=== PATIENT | male | born 1955 | race Caucasian/White ===

== ENCOUNTER 2017-11-16 11:50 | Day surgery (SDC) | payer OTHER ==
[2017-11-10 15:53] VITALS: BMI 35.4
[~2017-11-16 11:50] MED LIST: LACTATED RINGERS 1,000 ML IV SCH; SODIUM CHLORIDE 0.9% 1,000 ML IV SCH
[2017-11-16] MEDS ORDERED: SODIUM CHLORIDE 0.9% 1,000 ML IV ONE ×2 (12:04→18:00)
[2017-11-16 12:26] LABS: Basophils % (A) 0 %; Eosinophils # (A) 0.2 k/uL (0-0.7); Eosinophils % (A) 3 %; HCT 49.6 % (39.0-53.0); HGB 16.6 gm/dL (13.0-17.5); Lymphocytes % (A) 28 %; MCHC 33.5 g/dL (31.0-37.0); MCV 92.7 fL (80.0-100.0); Mean Platelet Volume 6.4; Monocytes # (A) 0.5 k/uL (0-1.0); Monocytes % (A) 7 %; Neutrophils # (A) 4.3 k/uL (1.3-7.7); Neutrophils % (A) 60 %; Platelet Count 326 k/uL (150-450); RBC 5.35 m/uL (4.30-5.90); WBC 7.2 k/uL (3.8-10.6)
[2017-11-16 12:29] LABS: Glucose,Whole Blood 106 mg/dL (75-99)
[2017-11-16 12:48] LABS: Anion Gap 9 mmol/L; Blood Urea Nitrogen 17 mg/dL (9-20); Calcium 9.1 mg/dL (8.4-10.2); Carbon Dioxide 25 mmol/L (22-30); Chloride 106 mmol/L (98-107); Glucose 110 mg/dL (74-99); Potassium 4.8 mmol/L (3.5-5.1); Sodium 140 mmol/L (137-145)
[2017-11-16] MEDS ORDERED: PROPOFOL 10 MG/ML 20 ML VIAL IV ONE (14:38)
[2017-11-16] MEDS ORDERED: LIDOCAINE 1% INJ 10MG/ML (20 ML MDV) ONE ×2 (14:38→15:08)
[2017-11-16] MEDS ORDERED: PROTAMINE SULFATE 10 MG/ML 5 ML VIAL IV ONE (14:38)
[2017-11-16] MEDS ORDERED: MIDAZOLAM 2 MG/2 ML VIAL ONE (14:38)
[2017-11-16] MEDS ORDERED: PHENYLEPHRINE-0.9% NACL SYG 1 MG/10 ML SYRINGE ONE (14:38)
[2017-11-16] MEDS ORDERED: SUCCINYLCHOLINE CHLORIDE 100 MG/5 ML SYR IV ONE (14:38)
[2017-11-16] MEDS ORDERED: HEPARIN SODIUM,PORCINE 10,000 UNIT/ML 1 ML VIAL ONE (14:38)
[2017-11-16] MEDS ORDERED: fentaNYL (PF) 50 MCG/ML 2 ML AMP ONE (14:38)
[2017-11-16] MEDS ORDERED: LIDOCAINE 1% INJ 10MG/ML (20 ML MDV) SQ ONE (15:10)
[2017-11-16] MEDS ORDERED: HEPARIN SOD,PORK IN 0.45% NACL 25,000 UNIT in 0.45% NACL 1 500ML.BAG IV ONE (15:30)
[2017-11-16] MEDS ORDERED: IOPAMIDOL-370 100ML BTL INJ ONE (18:08)
[2017-11-16] MEDS ORDERED: ACETAMINOPHEN TAB 325 MG TAB PO PRN (18:24)
[2017-11-16] MEDS ORDERED: HYDROcodone/APAP 5-325MG 1 EACH TAB PO PRN (18:24)
[2017-11-16] MEDS ORDERED: ACETAMINOPHEN IV (For NPO) 1,000 MG in EMPTY BAG 1 BAG IVPB ONE (18:24)
--- NOTE | 2017-11-16 18:38 | P.PCN ---
Preoperative Diagnosis: Diagnosis Atrial fibrillation, symptomatic, recent onset persistent Failed prior therapies including cardioversion Procedures performed (PVI - CRYO Ablation) Invasive hemodynamic monitoring while general anesthesia, right femoral arterial line for monitoring and sampling Comprehensive diagnostic EP study with attempted arrhythmia induction CS pacing and recording Catheter the mapping of the tachycardia (NOT 3D mapping) Intracardiac echocardiography Pulmonary vein isolation with transseptal and comprehensive EPS, [id number] Procedure details Patient was brought to the EP lab in a fasting state. Written informed consent was obtained prior to the procedure. Procedure performed under general anesthesia After initial muscle relaxant use, muscle relaxants were not given thereafter in order to assess phrenic nerve during procedure Patient prepped and draped as per protocol Full cryo-set up with standard preparation of the cryoablation tools done Femoral Venous access obtained on the right and left groins Sheaths placed Diagnostic catheters for the high right atrium, phrenic nerve stimulation and pacing, His bundle, RV and coronary sinus placed Intracardiac echo catheter placed Long sheath placed in the right atrium Left and right transseptal catheterization performed under intracardiac echo guidance Intravenous heparin with aCT above 300 Later, catheter positioning and balloon positioning under intracardiac echo Electrical cardioversion Baseline measurements Patient in atrial fibrillation of the start of the study, somewhat organized atrial fibrillation cycle length shorter than 200 ms but variable and Doing sinus rhythm cycle length 1101, MS 133, QRS 91 and QT interval 405 ms AH 103 ms, HV 46 ms Comprehensive diagnostic EP study with drug infusion Atrial recording/ pacing performed from the high right atrium and the coronary sinus RV pacing Transseptal catheterization performed RA pressure 13/8/11 LA pressure 20/6/14 Transseptal catheterization performed with standard sheath. The cryoablation sheath was then placed with an over the wire exchange without any acute complications. Very rotated heart, [place] needle pointing at 6:00 for transseptal puncture All 4 pulmonary veins were isolated in the following sequence: Left superior followed by left inferior followed by right superior followed by right inferior The cryo-ablation balloon was placed at the os of each vein 1.5 mL of IV dye was injected to confirm an occluded vein Goal during cryoablation was to achieve complete occlusion of the pulmonary vein , achieve -30C at 30 seconds and achieve -40C at 60 seconds and a time to affect of less than 60-90 seconds, . If not the balloon was repositioned to obtain this result After completion of Cryoblation with durations from 180-240 seconds, entrance block was confirmed with the Attain circular catheter in a roving fashion around the antrum of the pulmonary veins Phrenic nerve pacing was performed from the SVC, right innominate vein area and diaphragm voltage was monitored. Diaphragmatic contractions were also monitored manually for strength of contraction. Parameter goals for each cryo freeze -30C by 30 seconds -40C by 60 seconds Mediated between minus 40-55 Thaw time greater than 10 seconds Balloon visualized by intracardiac echo to ensure that the proximal one third was within the left atrium/antrum The esophagus was intubated. Esophageal Temperature monitoring with a CIRCA catheter formed. Esophageal deflection for hypothermia of the esophagus below 32C Left superior pulmonary vein Difficult but successful occlusion of the vein 120, followed by 180, followed by 120 seconds lesions Complete isolation on the second attempt in less than 60 seconds The first cryoablation was prematurely terminated because pulmonary veins could not be eliminated in 90 seconds Left inferior pulmonary vein 2 lesions, 180 followed by 120 seconds, complete isolation Right superior pulmonary vein, during phrenic nerve pacing 2 lesions, 150 seconds and 137 seconds Very Mild phrenic nerve paresis noted hence premature termination for the second cryo Low temperatures below -60 noted for the first cryo lesion hence premature termination Time interval of greater than 5 minutes given prior to starting cryoablation of the right inferior pulmonary vein Right inferior pulmonary vein, during phrenic nerve pacing After documenting adequate strength of diaphragmatic stimulation, cryoablation performed First cryo lesion 83 seconds. Premature termination on account of esophageal cooling. Line esophageal deflection performed Next cryo lesion 176 seconds, prematurely terminated by 4 seconds on account of very mild phrenic nerve paresis which recovered completely At the end of the procedure the Achieve catheter was once again used to check for entrance block Phrenic nerve stimulation was performed to confirm diaphragmatic stimulation the end of the procedure Very mild phrenic nerve paresis noted with both right superior and right inferior pulmonary veins. Adequate time given in between for recovery and complete recovery documented at the end of the procedure Cine fluoroscopy was performed at the very end of the procedure to confirm movement of both diaphragms with inspiration and expiration At the end of the procedure the patient was extubated Heparin was reversed Venous sheaths were removed and hemostasis assured Result Successful pulmonary vein isolation of all veins using cryo-ablation Complete entrance block in all 4 veins confirmed Very mild phrenic nerve paresis during the right-sided pulmonary veins cryoablation which recovered completely The paresis was very mild and the diaphragmatic electrograms showed mild diminution in amplitude Esophageal deflection was the left side Esophageal cooling below 27.5C with a right inferior pulmonary vein cryoablation hence deflection performed
[2017-11-16 18:41] LABS: Glucose,Whole Blood 109 mg/dL (75-99)
[2017-11-16] MEDS ORDERED: ACETAMINOPHEN IV (For NPO) 1,000 MG/100 ML VIAL IVPB ONE (19:05)
[2017-11-16] MEDS: SODIUM CHLORIDE 0.9% 1,000 ML IV SCH (20:12)
[2017-11-16] MEDS: DABIGATRAN 150 MG CAP PO SCH (20:15)
[2017-11-16] MEDS ORDERED: METOPROLOL TARTRATE 25 MG TAB PO SCH (21:00)
[2017-11-16 21:11] LABS: Glucose,Whole Blood 179 mg/dL (75-99)
[2017-11-17 06:48] LABS: Glucose,Whole Blood 102 mg/dL (75-99)
[2017-11-17 07:44] VITALS: RESP 16
[2017-11-17] MEDS ORDERED: RX INFO: IV CONTRAST WAS GIVEN 1 EACH MISC MISCELLANE PRN (07:52)
--- NOTE | 2017-11-17 07:57 | P.DS ---
Providers Attending physician: Isidro Hernandez Primary care physician: [facility] Course: Patient is doing well. He is sitting up in bed. Comfortable no chest pain no dizziness lightheadedness palpitations. Is in sinus rhythm in the 80s with PACs Groins of healed well no hematoma minimal tenderness Heart sounds S1 and S2 are normal no murmurs or gallops no rub Breath sounds are clear no rhonchi no crackles Abdomen is soft nontender Extremities warm no edema Impression persistent atrial fibrillation of recent onset status post pulmonary vein isolation, cryoablation with complete resolution of all 4 veins Hypertension with LVH Obesity Type 2 diabetes on metformin Suggest Start flecainide give 1 dose of 100 mg stat followed by 50 mg twice daily IV fluids CT of the chest with contrast to rule out any mediastinal structure injury Ambulate in the hallways Hold metformin for 24 more hours, oral fluids ad lokesh. If there is no air in the mediastinum and no evidence for any injury he may be discharged by 5 PM today Labs are reviewed at [facility] and normal liver function normal hemoglobin normal Plan - Discharge Summary Discharge Rx Participant: Yes New Discharge Prescriptions: No Action Metoprolol Tartrate [Lopressor] 25 mg PO BID Gemfibrozil [Lopid] 600 mg PO BID Cholecalciferol [Vitamin D3] 1,000 unit PO DAILY Multivitamin [Men's Multi-Vitamin] 1 tab PO DAILY Dabigatran [Pradaxa] 150 mg PO BID amLODIPine [Norvasc] 10 mg PO QAM metFORMIN HCL [Glucophage] 500 mg PO BID Discharge Medication List Metoprolol Tartrate [Lopressor] 25 mg PO BID 07/09/15 [History] Cholecalciferol [Vitamin D3] 1,000 unit PO DAILY 03/10/16 [History] Gemfibrozil [Lopid] 600 mg PO BID 03/10/16 [History] Multivitamin [Men's Multi-Vitamin] 1 tab PO DAILY 03/10/16 [History] Dabigatran [Pradaxa] 150 mg PO BID 11/10/17 [History] amLODIPine [Norvasc] 10 mg PO QAM 11/10/17 [History] metFORMIN HCL [Glucophage] 500 mg PO BID 11/10/17 [History]
[2017-11-17] MEDS ORDERED: FLECAINIDE 50 MG TAB PO STA (08:03)
[2017-11-17 08:11] LABS: Anion Gap 7 mmol/L; Blood Urea Nitrogen 18 mg/dL (9-20); Calcium 8.7 mg/dL (8.4-10.2); Carbon Dioxide 25 mmol/L (22-30); Chloride 107 mmol/L (98-107); Glucose 88 mg/dL (74-99); Potassium 4.6 mmol/L (3.5-5.1); Sodium 139 mmol/L (137-145)
[2017-11-17] MEDS: DABIGATRAN 150 MG CAP PO SCH (08:12)
[2017-11-17] MEDS ORDERED: FENOFIBRATE 160 MG TAB PO SCH (09:00)
[2017-11-17] MEDS ORDERED: FLECAINIDE 50 MG TAB PO SCH ×2 (09:00→21:00)
[2017-11-17] MEDS ORDERED: amLODIPine 10 MG TAB PO SCH (09:00)
--- NOTE | 2017-11-17 11:43 | CT ---
EXAMINATION TYPE: CT chest w con DATE OF EXAM: 11/17/2017 COMPARISON: NONE HISTORY: Atrial fibrillation treated with ablation rule out esophageal injury CT DLP: 955.2 mGycm. Automated Exposure Control for Dose Reduction was Utilized. TECHNIQUE: CT scan of the thorax is performed following with IV Contrast, patient injected with 100 mL of Isovue 300. FINDINGS: LUNGS: There is minimal linear scarring or atelectasis central right lower lung axial image 39.. Ther e is additional slightly more prominent linear scarring in the left upper lobe posteriorly coronal im age 83 corresponding to axial image 20 No suspicious consolidation is seen There is no pleural effusi on or pneumothorax seen bilaterally. The tracheobronchial tree is patent. No concerning nodules are identified MEDIASTINUM: There are no greater than 1 cm noncalcified hilar or mediastinal lymph nodes. There are few calcified pericarinal and subcarinal lymph nodes No cardiomegaly or pericardial effusion is seen . Coronary artery calcification is present which is noted marker for coronary artery disease. OTHER: Liver is diffusely low dense consistent with fatty infiltration. Mild to moderate diffuse fat replaced atrophy of pancreas is seen. Moderate to severe multilevel anterior and lateral spurring in the thoracic spine is present. IMPRESSION: No suspicious mediastinal fluid collection or air to suggest complication related to rece nt atrial fibrillation procedure.
[2017-11-17 12:12] LABS: Glucose,Whole Blood 106 mg/dL (75-99)
[2017-11-17 15:47] VITALS: BP 146/87; PULSE 83; TEMP 98.3
--- NOTE | 2017-11-21 13:14 | CDI ---
Date: 11/21/17 CDS/Cut And Print [employer] Operator Name: Lacey Jauregui Phone: If any questions, call Lilliam Joe [employer] at [phone] Patient Name: Yovanny Hammond Admit Date: 11/16/17 Discharge Date: 11/16/17 ATTENTION: The [facility] Coding Staff appreciate your assistance in clarifying documentation. Please respond to the clarification below the line at the bottom and electronically sign. The [facility] Coding staff will review the response and follow-up if needed. Please note: Queries are made part of the Legal Health Record. If you have any questions, please contact the [employer]. Dear Dr. Hernandez, Please provide clarification on the cardioversion. Please clarify if cardioversion was internal or external. Thank you for your kind consideration. External Cardioversion In future whenever Dr. Hernandez performs a cardioversion for atrial fibrillation please equate that as external cardioversion and check the appropriate box as EXTERNAL CVN MTDD
== END 2017-11-17 17:07 | disposition home or self-care (01) ==
LOC: CATHEP 11:50 → 3OBS 17:42 → CATHEP 11-17 17:07
PROVIDERS: ATTEND Internal Medicine Clinical Cardiac Electrophysiology
DX: I48.1 Persistent atrial fibrillation (principal); I10 Essential (primary) hypertension; Z79.84 Long term (current) use of oral hypoglycemic drugs; E11.9 Type 2 diabetes mellitus without complications; G47.33 Obstructive sleep apnea (adult) (pediatric); E66.9 Obesity, unspecified; Z68.30 Body mass index [BMI] 30.0-30.9, adult; Z87.891 Personal history of nicotine dependence; E78.5 Hyperlipidemia, unspecified; Z79.899 Other long term (current) drug therapy; Z88.8 Allergy status to other drugs, medicaments and biological substances
CPT/HCPCS: 85347 ×2; 92960; 93662; 93609; 93656; 80048 ×2; 85025; 83036; 71260; C1769 ×5; C1894 ×3; C1730 ×3; C1759; C1893; C1733; C1766; J2250; J2720; J1644 ×2; J2001; J3010; J0131; J2370; J0330; J2704; Q9967 ×2

== ENCOUNTER → 2018-10-02 | Outpatient (CLI) | payer OTHER ==
[2018-10-02 17:53] LABS: LDL Cholesterol,Calculated 167.6 mg/dL (0.0-131.0); VLDL Calculation 25.4 mg/dL (5.00-40.00)
== END | disposition home or self-care (01) ==
LOC: LABWHC1 08:53
PROVIDERS: ATTEND Internal Medicine Cardiovascular Disease
DX: E78.2 Mixed hyperlipidemia (principal)
CPT/HCPCS: 36415; 80061; 84450; 84460

== ENCOUNTER 2019-01-15 14:10 | Inpatient (IN) | payer OTHER ==
[2019-01-15] MEDS ORDERED: SODIUM CHLORIDE 0.9% 1,000 ML IV STA (14:53)
--- NOTE | 2019-01-15 14:59 | ED ---
General Adult HPI - General Chief complaint: Neuro Symptoms/Deficit Stated complaint: LEFT SIDED WEAKNESS Time Seen by Provider: 01/15/19 14:17 Source: patient, EMS, RN notes reviewed Mode of arrival: EMS Limitations: no limitations - History of Present Illness Initial comments: Patient is a pleasant 63-year-old male presenting to the emergency Department as a transfer from [facility] with diagnosis of TIA. The physician there states NIH was 0 however she decided to call the patient at TIA. He states patient had paresthesias however no weakness. On evaluating patient states he has noticed some mild weakness. He feels mild weakness may have improved somewhat. During examination patient states his weakness actually is unchanged. Patient states onset of symptoms was 11 AM. Patient complains of paresthesias mostly of the left face and left arm. No history of similar symptoms previously. Patient is diabetic. Patient is on pradaxa for atrial fibrillation. Patient does have very mild headache. Patient states he does have chronic similar headaches that come and go. Headache was not sudden onset. - Related Data Home Medications Medication Instructions Recorded Confirmed Metoprolol Tartrate [Lopressor] 25 mg PO BID 07/09/15 11/16/17 Cholecalciferol [Vitamin D3] 1,000 unit PO DAILY 03/10/16 11/16/17 Dabigatran [Pradaxa] 150 mg PO BID 11/10/17 11/16/17 amLODIPine [Norvasc] 10 mg PO QAM 11/10/17 11/16/17 metFORMIN HCL [Glucophage] 500 mg PO BID 11/10/17 11/16/17 Flecainide Acetate 50 mg PO BID 01/15/19 01/15/19 Lovastatin [Mevacor] 10 mg PO HS 01/15/19 01/15/19 Naproxen Sodium 550 mg PO BID PRN 01/15/19 01/15/19 Allergies Allergy/AdvReac Type Severity Reaction Status Date / Time simvastatin [From Zocor] AdvReac CRAMPING Verified 01/15/19 15:00 [id number] Reductase AdvReac CRAMPING Verified 01/15/19 15:00 Inhibitor Review of Systems ROS Statement: Those systems with pertinent positive or pertinent negative responses have been documented in the HPI. ROS Other: All systems not noted in ROS Statement are negative. Constitutional: Denies: fever Eyes: Denies: eye pain ENT: Denies: ear pain Respiratory: Denies: cough, dyspnea Endocrine: Denies: fatigue Gastrointestinal: Denies: abdominal pain Genitourinary: Denies: dysuria Musculoskeletal: Denies: back pain Skin: Denies: rash Neurological: Reports: as per HPI Past Medical History Past Medical History: Diabetes Mellitus, Hyperlipidemia, Hypertension, Osteoarthritis (OA), Sleep Apnea/CPAP/BIPAP Additional Past Medical History / Comment(s): no cpap kidney stone x1 see Dr webster's H&P History of Any Multi-Drug Resistant Organisms: None Reported Past Surgical History: No Surgical Hx Reported Past Anesthesia/Blood Transfusion Reactions: No Reported Reaction Past Psychological History: Depression Smoking Status: Former smoker Past Alcohol Use History: Occasional Past Drug Use History: Marijuana - Past Family History Father Family Medical History: Myocardial Infarction ([place]) Mother Family Medical History: Diabetes Mellitus, Myocardial Infarction ([place]) General Exam Limitations: no limitations General appearance: alert, in no apparent distress Head exam: Present: atraumatic, normocephalic Eye exam: Present: normal appearance, PERRL, EOMI. Absent: nystagmus ENT exam: Present: normal oropharynx Neck exam: Present: normal inspection Respiratory exam: Present: normal lung sounds bilaterally Cardiovascular Exam: Present: regular rate, normal rhythm GI/Abdominal exam: Present: soft. Absent: tenderness Extremities exam: Present: normal inspection Neurological exam: Present: alert, oriented X3, CN II-XII intact (Except slight decreased sensation left face) Expanded Neurological exam: Present: protecting the airway Patient oriented to: Present: person, place, time Cranial nerves: EOM's Intact: Normal, Facial Sensation: Abnormal Left (Slight decreased sensation left maxillary region) Sensory exam: Upper Extremity Light Touch: Normal, Lower Extremity Light Touch: Normal Motor strength exam: RUE: 5, LUE: 4, RLE: 5, LLE: 4 Eye Response: (4) open spontaneously Motor Response: (6) obeys commands Verbal Response: (5) oriented Psychiatric exam: Present: normal affect, normal mood Skin exam: Present: normal color Course Vital Signs 01/15/19 14:17 Temperature 97.7 F Pulse Rate 68 Respiratory 20 Rate Blood Pressure 134/77 O2 Sat by Pulse 94 L Oximetry - Reevaluation(s) Reevaluation #1: 01/15/19 14:54 Neural interventional list has been paged. Code stroke has been called. 01/15/19 14:57 niH in the emergency department is 3. 01/15/19 15:02 Case was discussed with neural interventional list who states patient should not have TPA. EKG Findings - EKG Comments: EKG Findings:: Normal sinus rhythm 67. IN 176. QRS 86. QT 420. QTc 443. Left axis. Normal QRS. Nonspecific T waves. Medical Decision Making - Medical Decision Making Case was discussed with Dr. macario who will admit covering for this me patient Disposition Clinical Impression: Cerebrovascular accident (CVA) Disposition: ADMITTED IP TO THIS HOSP Is patient prescribed a controlled substance at d/c from ED?: No Referrals: [facility],Clinic [Primary Care Provider] - 1-2 days Decision Time: 15:05
[2019-01-15] MEDS ORDERED: ASPIRIN 325 MG TAB PO STA (15:05)
--- NOTE | 2019-01-15 16:02 | CT ---
EXAMINATION TYPE: CT angio head neck DATE OF EXAM: 01/15/2019 COMPARISON: Outside CT head 01/15/2019 HISTORY: 63-year-old male neurologic deficits, acute stroke suspected TECHNIQUE: Contiguous axial scanning of the head and neck performed with IV Contrast, patient injecte d with 65 mL of Isovue 370. Coronal/sagittal MIP reconstructions performed. 3-D reconstructions gener ated on a dedicated independent workstation. CT DLP: 584.5 mGycm Automated exposure control for dose reduction was used. FINDINGS: Neck: Conventional arch vessel branching anatomy. The vertebral arteries are codominant and patent throughout their course. The brachiocephalic, right common, and right internal carotid arteries are widely patent. Tortuosity of the upper cervical right ICA. The left common and internal carotid arteries are widely patent. Tortuous mid to upper segment of the left cervical ICA. Head: The vertebral, basilar, and internal carotid arteries are widely patent. The anterior and posterior c irculation are also patent without significant stenosis. There is early bifurcation of the M1 segment of left MCA. No aneurysmal changes seen. IMPRESSION: 1. NECK: WIDELY PATENT COMMON AND VERTEBRAL ARTERIES OF THE NECK. 2. HEAD: NO LARGE VESSEL INTRACRANIAL ARTERIAL OCCLUSION OR ANEURYSMAL CHANGE.
--- NOTE | 2019-01-15 18:01 | ECHOF ---
Referral Reason:Thrombus MEASUREMENTS -------- HEIGHT: 177.8 cm WEIGHT: 108.9 kg BP: 134/77 RVIDd: 3.7 cm (< 3.3) IVSd: 1.5 cm (0.6 - 1.1) LVIDd: 5.0 cm (3.9 - 5.3) LVPWd: 1.8 cm (0.6 - 1.1) IVSs: 2.2 cm LVIDs: 3.5 cm LVPWs: 2.1 cm LAESV Index (A-L): 27.77 ml/m Ao Diam: 3.5 cm (2.0 - 3.7) AV Cusp: 2.4 cm (1.5 - 2.6) LA Diam: 4.5 cm (2.7 - 3.8) MV EXCURSION: 19.783 mm (> 18.000) MV EF SLOPE: 140 mm/s (70 - 150) EPSS: 0.7 cm MV E Blas: 0.76 m/s MV DecT: 196 ms MV A Blas: 0.57 m/s MV E/A Ratio: 1.34 RAP: 5.00 mmHg RVSP: 43.88 mmHg TAPSE: 27.20 mm FINDINGS -------- Sinus rhythm. This was a technically difficult study with suboptimal apical views. The left ventricular size is normal. There is moderate concentric left ventricular hypertrophy. O verall left ventricular systolic function is normal with, an EF between 55 - 60 %. The diastolic fi lling pattern is normal for the age of the patient 13.24. The right ventricle is mild to moderately enlarged. LA is midly dilated 29-33ml/m2. The right atrium was not well visualized. xx ml of Lumason was utilized for enhancement of images. Interatrial and interventricular septum intact. The aortic valve was not well visualized. There is no evidence of aortic regurgitation. There is no evidence of aortic stenosis. Mild mitral annular calcification present. No mitral regurgitation. Mild tricuspid regurgitation present. There is mild pulmonary hypertension. The right ventricular systolic pressure, as measured by Doppler, is 43.88mmHg. There is no pulmonic regurgitation present. The aortic root size is normal. IVC Not well visulized. There is no pericardial effusion. CONCLUSIONS -------- 1. Sinus rhythm. 2. This was a technically difficult study with suboptimal apical views. 3. The left ventricular size is normal. 4. There is moderate concentric left ventricular hypertrophy. 5. Overall left ventricular systolic function is normal with, an EF between 55 - 60 %. 6. The diastolic filling pattern is normal for the age of the patient 13.24 7. The right ventricle is mild to moderately enlarged. 8. LA is midly dilated 29-33ml/m2. 9. The right atrium was not well visualized. 10. xx ml of Lumason was utilized for enhancement of images. 11. Interatrial and interventricular septum intact. 12. The aortic valve was not well visualized. 13. There is no evidence of aortic regurgitation. 14. There is no evidence of aortic stenosis. 15. Mild mitral annular calcification present. 16. No mitral regurgitation. 17. Mild tricuspid regurgitation present. 18. There is mild pulmonary hypertension. 19. The right ventricular systolic pressure, as measured by Doppler, is 43.88mmHg. 20. There is no pulmonic regurgitation present. 21. The aortic root size is normal. 22. IVC Not well visulized. 23. There is no pericardial effusion. MIXING TECHNICIAN: Nasrin Mei RDCS
[2019-01-15] MEDS: SODIUM CHLORIDE 0.9% 1,000 ML IV SCH (19:34)
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
[2019-01-15] MEDS: DABIGATRAN 150 MG CAP PO SCH (22:46)
[2019-01-16] MEDS ORDERED: INFLUENZA VACCINE (6 MOS+) 60 MCG/0.5 ML SYRINGE IM ONE (00:21)
[2019-01-16 01:12] VITALS: RESP 16
[2019-01-16] MEDS: SODIUM CHLORIDE 0.9% 1,000 ML IV SCH ×2 (06:08→12:57)
[2019-01-16 06:14] LABS: Glucose,Whole Blood 97 mg/dL (75-99)
[2019-01-16 07:46] LABS: Prothrombin Time 10.8 sec (9.0-12.0)
[2019-01-16 08:01] LABS: Basophils % (A) 1 %; Eosinophils # (A) 0.2 k/uL (0-0.7); Eosinophils % (A) 3 %; HCT 48.5 % (39.0-53.0); HGB 16.7 gm/dL (13.0-17.5); Lymphocytes # (A) 1.5 k/uL (1.0-4.8); Lymphocytes % (A) 25 %; MCH 32.1 pg (25.0-35.0); MCHC 34.5 g/dL (31.0-37.0); MCV 92.9 fL (80.0-100.0); Mean Platelet Volume 5.6; Monocytes # (A) 0.4 k/uL (0-1.0); Monocytes % (A) 7 %; Neutrophils # (A) 3.8 k/uL (1.3-7.7); Neutrophils % (A) 62 %; Platelet Count 226 k/uL (150-450); RBC 5.22 m/uL (4.30-5.90); RDW 12.6 % (11.5-15.5); WBC 6.1 k/uL (3.8-10.6)
[2019-01-16 08:07] LABS: ALT 43 U/L (21-72); AST 31 U/L (17-59); African American GFR (CKD) >90 (>60 ml/min/1.73 sqM); Albumin 4.1 g/dL (3.5-5.0); Alkaline Phosphatase 64 U/L (38-126); Anion Gap 9 mmol/L; Blood Urea Nitrogen 15 mg/dL (9-20); Calcium 9.2 mg/dL (8.4-10.2); Carbon Dioxide 27 mmol/L (22-30); Chloride 105 mmol/L (98-107); Cholesterol 198 mg/dL (<200); Glucose 101 mg/dL (74-99); HDL Cholesterol 34 mg/dL (40-60); LDL Cholesterol,Calculated 143 mg/dL (0-99); Non-African American GFR(CKD) 88 (>60 ml/min/1.73 sqM); Potassium 4.3 mmol/L (3.5-5.1); Sodium 141 mmol/L (137-145); Total Bilirubin 0.7 mg/dL (0.2-1.3); Total Protein 7.2 g/dL (6.3-8.2); Triglycerides 105 mg/dL (<150)
[2019-01-16] MEDS: DABIGATRAN 150 MG CAP PO SCH (08:28)
[2019-01-16] MEDS ORDERED: CHOLECALCIFEROL 1,000 UNIT TAB PO SCH (09:00)
[2019-01-16] MEDS ORDERED: ASPIRIN 325 MG TAB PO SCH (09:00)
[2019-01-16] MEDS ORDERED: METOPROLOL TARTRATE 25 MG TAB PO SCH (09:00)
[2019-01-16] MEDS ORDERED: amLODIPine 10 MG TAB PO SCH (09:00)
[2019-01-16] MEDS ORDERED: FLECAINIDE 50 MG TAB PO SCH (09:00)
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
[2019-01-16 11:33] VITALS: TEMP 97.7
[2019-01-16 12:14] LABS: Glucose,Whole Blood 105 mg/dL (75-99)
[2019-01-16 14:32] VITALS: BP 115/62; PULSE 57
[2019-01-16 17:06] LABS: Glucose,Whole Blood 93 mg/dL (75-99)
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
[2019-01-17] MEDS ORDERED: ASPIRIN 81 MG PO SCH (09:00)
== END 2019-01-16 17:39 | disposition home or self-care (01) | DRG 69 ==
LOC: EC 14:10 → 3SCARD 15:05
PROVIDERS: ADMIT Internal Medicine; ATTEND Internal Medicine
DX: G45.9 Transient cerebral ischemic attack, unspecified (principal); G81.94 Hemiplegia, unspecified affecting left nondominant side; I48.19 Other persistent atrial fibrillation; F44.89 Other dissociative and conversion disorders; E11.9 Type 2 diabetes mellitus without complications; E78.5 Hyperlipidemia, unspecified; F32.9 Major depressive disorder, single episode, unspecified; G47.30 Sleep apnea, unspecified; I10 Essential (primary) hypertension; M19.90 Unspecified osteoarthritis, unspecified site; Z79.01 Long term (current) use of anticoagulants; Z79.02 Long term (current) use of antithrombotics/antiplatelets; Z79.84 Long term (current) use of oral hypoglycemic drugs; Z79.899 Other long term (current) drug therapy; Z82.49 Family history of ischemic heart disease and other diseases of the circulatory system; Z83.3 Family history of diabetes mellitus; Z86.73 Personal history of transient ischemic attack (TIA), and cerebral infarction without residual deficits; Z87.891 Personal history of nicotine dependence; R47.81 Slurred speech; Z79.82 Long term (current) use of aspirin
CPT/HCPCS: 70496; 70498; 80053; 80061; 85025; 85610; 85730; 90686; 93005; 93306; 96360; 96361; 99285

== ENCOUNTER → 2019-03-13 | Outpatient (CLI) | payer OTHER ==
[2019-03-13 16:27] LABS: Chol/HDL Ratio 5.62; LDL Cholesterol,Calculated 164.8 mg/dL (0.0-131.0); VLDL Calculation 29.2 mg/dL (5.00-40.00)
== END | disposition home or self-care (01) ==
LOC: LABWHC1 10:38
PROVIDERS: ATTEND Physician Assistant
DX: I63.9 Cerebral infarction, unspecified (principal)
CPT/HCPCS: 36415; 80061

== ENCOUNTER → 2022-11-03 | Outpatient (CLI) | payer OTHER ==
[2022-11-03 17:05] LABS: HCT 55.7 % (39.6-50.0); HGB 19.2 d/dL (13.0-17.0); MCH 31.8 pg (27.0-32.0); MCHC 34.5 d/dL (32.0-37.0); MCV 92.2 FL (80.0-97.0); NRBC Per 100 WBC 0 X 10*3/uL (0.00-0.01); Platelet Count 259 X 10*3/uL (140-440); RBC 6.04 X 10*6/uL (4.40-5.60); RDW 12.7 % (11.5-14.5); WBC 9.01 X 10*3/uL (4.50-10.00)
[2022-11-03 20:08] LABS: Carbon Dioxide 26.5 mmol/L (21.6-31.8); Chloride 102 mmol/L (96-109); Potassium 4.5 mmol/L (3.5-5.5); Sodium 141 mmol/L (135-145)
== END | disposition home or self-care (01) ==
LOC: LABPAT 12:15
PROVIDERS: ATTEND Internal Medicine
DX: Z01.812 Encounter for preprocedural laboratory examination (principal); R94.39 Abnormal result of other cardiovascular function study
CPT/HCPCS: 80051; 82565; 84520; 85027

== ENCOUNTER 2022-11-16 09:19 | Day surgery (SDC) | payer MEDICARE, OTHER ==
[2022-11-08 16:26] VITALS: BMI 31.5
[~2022-11-16 09:19] MED LIST changes: +ALPRAZolam 0.25 MG TAB PO PRN; +ALPRAZolam 0.5 MG TAB PO PRN; +ASPIRIN 325 MG TAB PO STA; +ATORVASTATIN 80 MG TAB PO STA; +HEPARIN SODIUM,PORCINE (1 ML) 2,500 UNIT in SODIUM CHLORIDE 0.9% 250 ML IRRIGATION PRN; +HEPARIN SODIUM,PORCINE 10,000 UNIT in SODIUM CHLORIDE 0.9% 1,000 ML IRRIGATION PRN; -LACTATED RINGERS 1,000 ML IV SCH; +NITROGLYCERIN SL TABS 0.4 MG TAB SUBLINGUAL PRN; -SODIUM CHLORIDE 0.9% 1,000 ML IV SCH; +SODIUM CHLORIDE 0.9% 1,000 ML in EMPTY BAG 1 BAG IV SCH
[2022-11-16] MEDS ORDERED: SODIUM CHLORIDE 0.9% 1,000 ML IV ONE (10:25)
[2022-11-16 10:33] VITALS: RESP 16; TEMP 98.3
[2022-11-16 10:35] LABS: Glucose,Whole Blood 119 mg/dL (70-110)
[2022-11-16] MEDS ORDERED: HEPARIN SODIUM 1,000 UN/ML (10ML VL) ONE (12:32)
[2022-11-16] MEDS ORDERED: VERAPAMIL 2.5 MG/ML 2 ML AMP ONE (12:32)
[2022-11-16] MEDS ORDERED: fentaNYL (PF) 50 MCG/ML 2 ML AMP ONE (12:32)
[2022-11-16] MEDS ORDERED: fentaNYL (PF) 50 MCG/ML 2 ML AMP IVP ONE (12:46)
[2022-11-16] MEDS ORDERED: MIDAZOLAM 2 MG/2 ML VIAL IVP ONE (12:46)
[2022-11-16] MEDS ORDERED: LIDOCAINE 2% (PF) 20 MG/ML 5 ML VIAL SQ ONE (12:49)
[2022-11-16] MEDS ORDERED: VERAPAMIL SYRINGE (5 MG/10 ML) INTRAARTER ONE (12:50)
[2022-11-16] MEDS ORDERED: HEPARIN SODIUM 1,000 UN/ML (10ML VL) IVP ONE (12:53)
[2022-11-16] MEDS ORDERED: IOPAMIDOL-370 100ML BTL INJ ONE (13:00)
--- NOTE | 2022-11-16 13:03 | P.CARDCATH ---
Description of Procedure: PROCEDURES PERFORMED: Left heart catheterization, bilateral coronary angiography, ultrasound guided arterial access INDICATION: Abnormal stress test CONSENT:I have discussed the risks, benefits and alternative therapies for the above-mentioned procedure and for both sedation/analgesia as well as necessary blood product administration, if indicated, as they pertain to this patient. The patient has indicated understanding and acceptance of the risks and procedures discussed. PROCEDURE: After the risks, benefits and alternatives of the above mentioned procedure explained in detail with the patient, informed consent was obtained. Patient was taken to the catheterization lab and prepped and draped in usual fashion. Ultrasound guidance was used to assess for arterial access. 1% lidocaine was used to anesthetize the right radial artery. A 6-Qatari sheath was placed in the right radial artery using modified Seldinger technique and ultrasound guidance. Left coronary angiography was performed with a 5-Qatari JL 3.5 catheter and right coronary angiography was performed with a 5-Qatari JR5 catheter in various views. There was some DERRICK 2-3 flow of the RCA. A 5-Qatari FR5 catheter was inserted into the left ventricle and pressure measurements were obtained. The right radial sheath was removed and a TR band was placed with hemostasis achieved. The patient tolerated the procedure well. Patient was transported back to the post catheterization holding area in stable condition. Conscious Sedation: Patient was monitored under the direct supervision of myself for conscious sedation using Versed and fentanyl for a total duration of 12 minutes HEMODYNAMICS: Aorta: 144/66 LV: 141/10, LVEDP 23 SELECTIVE CORONARY ARTERIOGRAPHY: LEFT MAIN: The left main is a large caliber vessel which bifurcates into the LAD and circumflex. There is no significant stenosis. LEFT ANTERIOR DESCENDING CORONARY ARTERY: LAD is a moderate to large caliber vessel which stops short of the apex. There are mild luminal irregularities with at most a 30% LAD stenosis. LEFT CIRCUMFLEX CORONARY ARTERY: Left circumflex is a moderate caliber vessel mild luminal irregularities. RIGHT CORONARY ARTERY: The right coronary artery is a large caliber vessel which gives off a PDA and PLV branch and is the dominant vessel. There are mild l uminal irregularities. FINAL IMPRESSION: 1. Mild CAD as described above including mild luminal irregularities and a 30% mid LAD stenosis. 2. Elevated left sided filling pressures PLAN: 1. Aggressive risk factor modification per most recent ACC/AHA guidelines. 2. Follow-up in the office in 1-2 weeks.
[2022-11-16 17:32] VITALS: BP 115/72; PULSE 70
== END 2022-11-16 16:12 | disposition home or self-care (01) ==
LOC: CATHCVL 09:19
PROVIDERS: ATTEND Internal Medicine
DX: I25.10 Atherosclerotic heart disease of native coronary artery without angina pectoris (principal); I10 Essential (primary) hypertension; E78.5 Hyperlipidemia, unspecified; I48.0 Paroxysmal atrial fibrillation; Z79.899 Other long term (current) drug therapy
CPT/HCPCS: 93458; 76937; C1769; C1894; J2250; J3010; J1644; Q9967; J2001